=== PATIENT | female | born 1990 | race Caucasian/White ===

== ENCOUNTER 2021-07-27 16:10 | Emergency (ER) | payer OTHER ==
[2021-07-27 16:51] LABS: HEMOGLOBIN 12.7 gm/dl (12.3-15.3); RED BLOOD COUNT 4.03 M/UL (4.00-5.10); WHITE BLOOD COUNT 5.2 K/UL (4.5-11.0)
[2021-07-27 17:08] LABS: BUN/CREATININE RATIO 32 (0-10)
[2021-07-27] MEDS ORDERED: CYCLOBENZAPRINE10 MG PO (21:43)
[2021-07-27] MEDS ORDERED: IBUPROFEN800 MG PO (21:43)
== END 2021-07-27 21:57 | disposition home or self-care (01) ==
LOC: ER1 16:10
PROVIDERS: Preventive Medicine Occupational Medicine
DX: S16.1XXA Strain of muscle, fascia and tendon at neck level, initial encounter (principal); S46.911A Strain of unspecified muscle, fascia and tendon at shoulder and upper arm level, right arm, initial encounter; F17.200 Nicotine dependence, unspecified, uncomplicated; W19.XXXA Unspecified fall, initial encounter
CPT/HCPCS: 70450; 72125; 73030; 80048; 85025; 96374; 99284; J1885

== ENCOUNTER 2021-08-21 20:00 | Emergency (ER) | payer OTHER ==
[~2021-08-21 20:00] MED LIST: CYCLOBENZAPRINE10 MG PO; IBUPROFEN800 MG PO
[2021-08-21 20:20] LABS: HEMOGLOBIN 13.1 gm/dl (12.3-15.3); RED BLOOD COUNT 4.16 M/UL (4.00-5.10); WHITE BLOOD COUNT 5.4 K/UL (4.5-11.0)
[2021-08-21 20:40] LABS: BUN/CREATININE RATIO 34 (0-10)
[2021-08-21] MEDS ORDERED: CEPHALEXIN500 M1 PO (22:48)
[2021-08-22] MEDS ORDERED: LINZESS145 MCG PO (20:32)
== END 2021-08-21 23:14 | disposition home or self-care (01) ==
LOC: ER1 20:00
PROVIDERS: Student in an Organized Health Care Education/Training Program
DX: K59.00 Constipation, unspecified (principal); N39.0 Urinary tract infection, site not specified; F17.210 Nicotine dependence, cigarettes, uncomplicated; Z88.2 Allergy status to sulfonamides
CPT/HCPCS: 80053; 81001; 83690; 84703; 85025; 87086; 99284; Q9967

== ENCOUNTER 2021-08-22 17:43 | Emergency (ER) | payer OTHER ==
[~2021-08-22 17:43] MED LIST changes: +CEPHALEXIN500 M1 PO
[2021-08-22] MEDS ORDERED: LINZESS145 MCG PO (20:32)
== END 2021-08-22 21:03 | disposition home or self-care (01) ==
LOC: ER1 17:43
DX: K59.00 Constipation, unspecified (principal); Z90.49 Acquired absence of other specified parts of digestive tract; F17.210 Nicotine dependence, cigarettes, uncomplicated; K21.9 Gastro-esophageal reflux disease without esophagitis
CPT/HCPCS: 71045; 99284